=== PATIENT | male | born 1945 | race Caucasian/White ===

== ENCOUNTER 2017-10-22 16:57 | Emergency (ER) | payer MEDICARE, BC ==
[2017-10-22 19:24] LABS: Hematocrit 39 % (42-52); Hemoglobin 13.3 g/dl (14.0-18.0); Mean Corpuscular HGB Conc 34 g/dl (31-36); Mean Corpuscular Hemoglobin 31 pg (27-31); Mean Corpuscular Volume 92 fL (80-94); Mean Platelet Volume 7 um3 (7.4-10.4); Red Blood Count 4.24 10^6/ul (4.0-5.4); Red Cell Distribution Width 14 % (10.5-15); White Blood Count 6.1 10^3/ul (3.5-10.8)
[2017-10-22] MEDS ORDERED: NS 0.9% 1000 ML* 1,000 ML IV ONE (19:34)
[2017-10-22 19:46] LABS: Albumin 4.2 g/dL (3.2-5.2); BUN/Creatinine Ratio 28.6 (8-20); Calcium 8.9 mg/dL (8.6-10.3); EGFR Non-African American 81.7 (>60); Globulin 2.6 g/dL (2-4); Magnesium 2.1 mg/dL (1.9-2.7); Potassium 3.7 mmol/L (3.5-5.0); Total Bilirubin 0.4 mg/dL (0.2-1.0); Total Protein 6.8 g/dL (6.4-8.9)
[2017-10-22 19:47] LABS: Troponin I 0.01 ng/mL (<0.04)
[2017-10-22 20:02] LABS: TSH (Thyroid Stimulating Horm) 0.45 mcIU/mL (0.34-5.60)
--- NOTE | 2017-10-22 20:11 | ED ---
Complex/Multi-Sys Presentation - HPI Summary HPI Summary: 72M presents with weakness since Monday. He states that on Monday he walked 4 miles. He states the weakness started after that. He states his feet have been hurting intermittent. He has been having a cough and sinus congestion. cough has been dry and productive. He denies any n/v/d/c. He denies any abdominal pain, headache, dizziness, change in vision,or chest pain. He did have one episode of SOB that lasted a couple minutes. He states traveled back from [place] and slept the whole time. He states has not had much of an appetite. He denies any dysuria or hematuria. He denies any flank pain. He has not been drying much. - History Of Current Complaint Chief Complaint: EDWeakness Time Seen by Provider: 10/22/17 18:45 - Allergies/Home Medications Allergies/Adverse Reactions: Allergies Allergy/AdvReac Type Severity Reaction Status Date / Time Brimonidine [From Alphagan] Allergy ITCHING, Verified 10/22/17 17:01 REDNESS BURNING EYES Isopropamide [From Combagen] Allergy Itching Verified 10/22/17 17:01 Prochlorperazine Allergy Itching Verified 10/22/17 17:01 [From Combagen] PMH/Surg Hx/FS Hx/Imm Hx Cardiovascular History: Reports: Hx Hypertension - CONTROLLED WITH MEDICATION, Other Cardiovascular Problems/Disorders - CHOLESTEROL CONTROL WITH MED History: Reports: Other Problems/Disorders - SLIGHT PSA RISE - UNDER CONTROL Sensory History: Reports: Hx Cataracts - BILATERAL, Hx Contacts or Glasses - GLASSES, Hx Glaucoma - RIGHT EYE CURRENTLY Denies: Hx Hearing Aid Opthamlomology History: Reports: Hx Cataracts - BILATERAL, Hx Contacts or Glasses - GLASSES, Hx Glaucoma - RIGHT EYE CURRENTLY Psychiatric History: Reports: Hx Anxiety - MILD, Hx Depression - CONTROLLED WITH MEDICATION - Surgical History Surgery Procedure, Year, and Place: TONSILLECTOMY A YOUNG CHILD, [place]. 2013 [place]AB[place] [facility] [place] Anesthesia Reactions: No - Immunization History Immunizations Up to Date: Yes Infectious Disease History: No Infectious Disease History: Denies: Traveled Outside the [place] in Last 30 Days - Social History Alcohol Use: Occasionally Alcohol Amount: 5 DRINKS PER WEEK Substance Use Type: Reports: None Smoking Status (MU): Former Smoker Type: Cigarettes Amount Used/How Often: LIGHTLY FOR ABOUT 1 YEAR Have You Smoked in the Last Year: No Review of Systems Negative: Fever Negative: Chest Pain Positive: Shortness Of Breath, Cough Neurological: Other - fatigue All Other Systems Reviewed And Are Negative: Yes Physical Exam Triage Information Reviewed: Yes Vital Signs On Initial Exam: Initial Vitals Temp Pulse Resp BP Pulse Ox 100.4 F 90 16 142/68 93 10/22/17 17:01 10/22/17 17:01 10/22/17 17:01 10/22/17 17:01 10/22/17 17:01 Vital Signs Reviewed: Yes Appearance: Positive: Well-Appearing Skin: Positive: Warm, Dry Head/Face: Positive: Normal Head/Face Inspection Eyes: Positive: Normal, EOMI, XIOMARA, Conjunctiva Clear ENT: Positive: Normal ENT inspection, Pharynx normal, TMs normal Respiratory/Lung Sounds: Positive: Clear to Auscultation, Breath Sounds Present Cardiovascular: Positive: Normal, RRR Abdomen Description: Positive: Nontender, Soft Bowel Sounds: Positive: Present Musculoskeletal: Positive: Strength/ROM Intact Neurological: Positive: Sensory/Motor Intact, Alert, Oriented to Person Place, Time, CN Intact II-III Psychiatric: Positive: Normal - [place] Coma Scale Coma Scale Total: 15 Diagnostics - Vital Signs Vital Signs Temp Pulse Resp BP Pulse Ox 10/22/17 17:01 100.4 F 90 16 142/68 93 - Laboratory Lab Results: Lab Results 10/22/17 10/22/17 10/22/17 Range/Units 19:10 19:10 19:10 WBC 6.1 (3.5-10.8) 10^3/ul RBC 4.24 (4.0-5.4) 10^6/ul Hgb 13.3 L (14.0-18.0) g/dl Hct 39 L (42-52) % MCV 92 (80-94) fL MCH 31 (27-31) pg MCHC 34 (31-36) g/dl RDW 14 (10.5-15) % Plt Count 170 (150-450) 10^3/ul MPV 7 L (7.4-10.4) um3 Neut % (Auto) 84.0 H (38-83) % Lymph % (Auto) 7.4 L (25-47) % Dupage % (Auto) 8.1 (1-9) % Eos % (Auto) 0.1 (0-6) % Baso % (Auto) 0.4 (0-2) % Absolute Neuts (auto) 5.1 (1.5-7.7) 10^3/ul Absolute Lymphs (auto) 0.5 L (1.0-4.8) 10^3/ul Absolute Monos (auto) 0.5 (0-0.8) 10^3/ul Absolute Eos (auto) 0 (0-0.6) 10^3/ul Absolute Basos (auto) 0 (0-0.2) 10^3/ul Absolute Nucleated RBC 0 10^3/ul Nucleated RBC % 0.1 Sodium 134 (133-145) mmol/L Potassium 3.7 (3.5-5.0) mmol/L Chloride 103 (101-111) mmol/L Carbon Dioxide 22 (22-32) mmol/L Anion Gap 9 (2-11) mmol/L BUN 26 H (6-24) mg/dL Creatinine 0.91 (0.67-1.17) mg/dL Est GFR ( Amer) 105.0 (>60) Est GFR (Non-Af Amer) 81.7 (>60) BUN/Creatinine Ratio 28.6 H (8-20) Glucose 132 H (70-100) mg/dL Lactic Acid 0.9 (0.5-2.0) mmol/L Calcium 8.9 (8.6-10.3) mg/dL Magnesium 2.1 (1.9-2.7) mg/dL Total Bilirubin 0.40 (0.2-1.0) mg/dL AST 36 (13-39) U/L ALT 29 (7-52) U/L Alkaline Phosphatase 45 (34-104) U/L Total Creatine Kinase 292 H (10-223) U/L Troponin I 0.01 (<0.04) ng/mL Total Protein 6.8 (6.4-8.9) g/dL Albumin 4.2 (3.2-5.2) g/dL Globulin 2.6 (2-4) g/dL Albumin/Globulin Ratio 1.6 (1-3) TSH 0.45 (0.34-5.60) mcIU/mL Result Diagrams: 10/22/17 19:10 10/22/17 19:10 Lab Statement: Any lab studies that have been ordered have been reviewed, and results considered in the medical decision making process. - Radiology chest Xray Interpretation: No Acute Changes Radiology Interpretation Completed By: Radiologist - EKG No standard instances Cardiac Rate: NL EKG Rhythm: Sinus Rhythm ST Segment: Normal EKG Interpretation: normal sinus rhythmn Re-Evaluation - Re-Evaluation First Eval Re-Evaluation Time: 20:45 Change: Improved Comment: feeling better after fluids Second Eval Re-Evaluation Time: 21:15 Change: Unchanged Comment: developed a fever, likely viral etiology Complex Multi-Symp Course/Dx Course Of Treatment: 72M presents with weakness since Monday. He states that on Monday he walked 4 miles. He states the weakness started after that. He states his feet have been hurting intermittent. He has been having a cough and sinus congestion. cough has been dry and productive. He denies any n/v/d/c. He denies any abdominal pain, headache, dizziness, change in vision, chest pain or SOB. He states traveled back from [place] and slept the whole time. He states has not had much of an appetite. He denies any dysuria or hematuria. He denies any flank pain. He has not been drying much. normal PE. lungs CTA. chest xray normal labs only abnormality is bun is a little elevated and CK is a little elevated could be do to dehyrdation. ekg normal. when went to discharge developed fever. discussed likely viral as all labs and chest xray normal. told to follow up with primary. patient understand and agrees with plan. - Diagnoses Differential Diagnoses/HQI/PQRI: Metabolic Abnormality, Sepsis, Urinary Tract Infection Provider Diagnoses: Weakness Discharge - Discharge Plan Condition: Good Disposition: HOME Patient Education Materials: Dehydration (ED), Weakness (ED) Referrals: Romero Ricci MD [Primary Care Provider] - Additional Instructions: Follow up with primary within 5 days Drink throughout the day Eat small snacks as tolerated Return to ED if develop any new or worsening symptoms
--- NOTE | 2017-10-22 20:21 | RAD ---
INDICATION: Cough. COMPARISON: There are no prior studies available for comparison. TECHNIQUE: Dual-energy PA and lateral views of the chest were obtained. FINDINGS: The heart is within normal limits in size. Mediastinal and hilar contours appear within normal limits. The lungs are hyperinflated and clear. No pleural effusion is seen. IMPRESSION: FINDINGS SUGGESTIVE OF COPD, NO EVIDENCE FOR ACUTE FINDING.
[2017-10-22] MEDS ORDERED: Acetaminophen TAB* 325 MG PO ONE (21:13)
[2017-10-22 21:41] VITALS: BP 131/67
== END 2017-10-22 21:41 | disposition home or self-care (01) ==
LOC: ED 16:57
DX: R53.1 Weakness (principal); Z87.891 Personal history of nicotine dependence; I10 Essential (primary) hypertension; F41.9 Anxiety disorder, unspecified; F32.9 Major depressive disorder, single episode, unspecified
CPT/HCPCS: 36415; 71020; 80053; 82550; 83605; 83735; 84443; 84484; 85025; 93005; 96360; 99282; A9270-GY

== ENCOUNTER 2018-07-04 06:27 | Day surgery (SDC) | payer MEDICARE, BC ==
[~2018-07-04 06:27] MED LIST: Acetaminophen TAB* 325 MG PO PRN; Buffered Lidocaine 0.9% SYRIN* 5 ML/SYR SYRINGE INTRADERM ONE; mitoMYcin PWD* 0.2 MG in Sterile Water for Inj* 1 ML OPHTHALMIC SCH
[2018-07-04] MEDS ORDERED: fentaNYL* 50 MCG/ML 2 ML VIAL (100 MCG VIAL) ONE (07:14)
[2018-07-04] MEDS ORDERED: Midazolam* 1 MG/ML 2 ML VIAL (2 MG) ONE (07:15)
[2018-07-04 08:10] VITALS: BP 123/73
--- NOTE | 2018-07-04 12:03 | OP ---
DATE OF OPERATION: 07/04/18 DATE OF : 43 SURGEON: Km John M.D. ANESTHESIA: Local MAC. PREOPERATIVE DIAGNOSIS: Uncontrolled glaucoma, left eye. POSTOPERATIVE DIAGNOSIS: Uncontrolled glaucoma, left eye. OPERATIVE PROCEDURE: Extracapsular cataract extraction with intraocular lens implant, left eye. COMPLICATIONS: None. DESCRIPTION OF PROCEDURE: The patient was prepped and draped in the usual sterile fashion. Lid spec ulum was placed to left eye. Topical 2% lidocaine with epinephrine was placed. A 20-gauge paracentes is was made at the 3 o'clock position and then a 1.8 mm clear corneal incision was made at the 6 o'cl ock position. Anterior chamber was irrigated with 1% non-preservative intracameral lidocaine and then filled with Healon. The XEN insertion device was placed through the clear corneal incision and plac ed just superior to trabecular meshwork at the 10 o'clock position. The device was inserted subconju nctivally 3-mm posterior to the limbus. Irrigation-aspiration used to rinse the anterior chamber free of Healon and the wounds all checked and found to be watertight. Topical Maxitrol drops were given. [id number] #: [id number]
[2018-07-04] MEDS ORDERED: Lidocaine 1%* 5 ML VIAL ONE (14:48)
[2018-07-04] MEDS ORDERED: Neomycin/Polymy/Dex OPTH.SUSP* MAXITROL 0.1% 5 ML ONE (14:48)
[2018-07-04] MEDS ORDERED: Proparacaine 0.5% OPHTH.SOL* 15 ML BTL ONE (14:48)
[2018-07-04] MEDS ORDERED: Lidocaine 2% EPI 1:200000 MPF*10-20 ML VIAL ONE (14:48)
[2018-07-04] MEDS ORDERED: Povidone Iodine 5% OPTH* 30 ML BTL ONE (14:48)
== END 2018-07-04 08:23 | disposition home or self-care (01) ==
LOC: OREAST 06:27
PROVIDERS: ATTEND Specialist
DX: H40.1423 Capsular glaucoma with pseudoexfoliation of lens, left eye, severe stage (principal); H40.1111 Primary open-angle glaucoma, right eye, mild stage; Z96.1 Presence of intraocular lens; Z87.891 Personal history of nicotine dependence; I10 Essential (primary) hypertension; E78.5 Hyperlipidemia, unspecified; F41.8 Other specified anxiety disorders; R42 Dizziness and giddiness; I95.1 Orthostatic hypotension
CPT/HCPCS: A9270-GY; C1725; J2250; J3010; J9280

== ENCOUNTER 2023-03-03 23:58 | Inpatient (IN) ==
[2023-03-04] MEDS ORDERED: Midazolam 2 mg/2 ml VIAL 1 mg/ml 2 ml VIAL (2 mg) IV SLOW PU ONE (00:03)
[2023-03-04] MEDS ORDERED: Midazolam 2 mg/2 ml VIAL 1 mg/ml 2 ml VIAL (2 mg) ONE (00:05)
[2023-03-04] MEDS ORDERED: Iodixanol (CONTRAST) 320 MG/ML 100 ML SDV IV ONE (00:23)
[2023-03-04 00:38] LABS: ABS Lymphocytes 0.5 10^3/ul (1.0-4.8); ABS Monocytes 0.8 10^3/ul (0-0.8); ABS Neutrophils 16.1 10^3/ul (1.5-7.7); Eosinophil % 0.1 %; Hematocrit 39 % (42-52); Lymphocyte % 2.9 %; Mean Corpuscular Hemoglobin 32 pg (27-31); Mean Corpuscular Hgb Conc 34 g/dL (31-36); Mean Corpuscular Volume 95 fL (80-94); Mean Platelet Volume 7.4 fL (7.4-10.4); Platelet Count 178 10^3/uL (150-450); Red Blood Count 4.09 10^6 /uL (4.18-5.48); Red Cell Distribution Width 13 % (10-15); White Blood Count 17.5 10^3/uL (3.5-10.8)
[2023-03-04 01:02] LABS: High Sens Troponin Baseline 6 pg/mL (<20); INR 1.31 (0.88-1.18)
[2023-03-04] MEDS ORDERED: NS 0.9% 1000 ml BAG 1,000 ML IV ONE (01:02)
[2023-03-04] MEDS ORDERED: NS 0.9% 1000 ml BAG 500 ML IV ONE (01:03)
[2023-03-04] MEDS ORDERED: levETIRAcetam 1000MG IVPREMIX 1,000 MG/100 ML BAG IVPB ONE ×2 (01:03→01:49)
[2023-03-04] MEDS ORDERED: Acetaminophen IV 1 GM/100ML 1,000 MG/100 ML BAG IV ONE ×2 (01:28→01:29)
[2023-03-04] MEDS ORDERED: cefTRIAXone 2 GM ADDV.VIAL 2 GM in NS 0.9% 100 ml BAG 100 ML IV ONE (01:28)
[2023-03-04] MEDS ORDERED: cefTRIAXone 2 gm/50 mL D5W 2 GM/50 ML BAG IV ONE (01:31)
[2023-03-04 01:33] LABS: ALT 21 U/L (7-52); Albumin 4.1 g/dL (3.2-5.2); Albumin/Globulin Ratio 1.6 (1-3); Alcohol, S < 13 mg/dL (<13); Alkaline Phosphatase 60 U/L (35-149); Blood Urea Nitrogen 32 mg/dL (6-24); CO2 Carbon Dioxide 22 mmol/L (22-32); Calcium 9.2 mg/dL (8.6-10.3); Chloride 101 mmol/L (101-111); Creatinine, Serum 1.04 mg/dL (0.67-1.17); Globulin 2.5 g/dL (2-4); Glucose 152 mg/dL (70-100); Sodium 134 mmol/L (135-145); Total Protein 6.6 g/dL (6.4-8.9); eGFR CKD-EPI 73.5 (>60)
[2023-03-04 01:39] LABS: Anion Gap 11 mmol/L (2-11)
[2023-03-04] MEDS ORDERED: Vancomycin 1,500 MG in NS 0.9% 250 ml 250 ML IVPB ONE (02:00)
[2023-03-04] MEDS ORDERED: Vancomycin 1,000 MG BAG/ADDV ONE (02:09)
[2023-03-04] MEDS ORDERED: Gadoteridol (CONTRAST) 279.3 MG/ML 10 ML IV ONE (03:04)
[2023-03-04 04:54] LABS: Urine Appearance Clear; Urine Bilirubin Negative (Negative); Urine Blood Negative (Negative); Urine Color Yellow; Urine Glucose 1+(50 mg/dL) (Negative); Urine Ketones 2+ (Negative); Urine Nitrite Negative (Negative); Urine Protein 2+(100 mg/dL) (Negative); Urine Specific Gravity 1.025 (1.002-1.030); Urine Urobilinogen Negative (Negative)
[2023-03-04 05:00] LABS: Urine Bacteria Absent (Absent); Urine Red Blood Cell 1+(3-5/hpf) (Absent); Urine Renal Epithelial Cells Present (Absent); Urine White Blood Cell Trace(0-5/hpf) (Absent)
[2023-03-04 05:19] LABS: Potassium Redraw 3.7 mmol/L (3.5-5.0)
[2023-03-04 06:31] LABS: C Reactive Protein 41.22 mg/L (<8.01)
[2023-03-04 07:05] LABS: Erythrocyte Sed Rate 17 mm/Hr (0-19)
[2023-03-04] MEDS ORDERED: Lactated Ringers SEPSIS* BAG 2,330 ML IV ONE (08:24)
[2023-03-04] MEDS ORDERED: Prochlorperazine 5 mg/ml 2 ml VIAL (10 mg) IV PRN (08:28)
[2023-03-04] MEDS ORDERED: PTO:Travoprost Z 0.004% OPHTH (NF) 2.5 ML BTL BOTH EYES SCH (08:30)
[2023-03-04] MEDS ORDERED: Vancomycin per Pharmacy 1 EA NOTE FOLLOW UP SCH (09:00)
[2023-03-04] MEDS ORDERED: Carbidopa/Levodop 25/100 MG TAB PO SCH (09:00)
[2023-03-04] MEDS ORDERED: OMEGA ACID ETHYL ESTERS PO SCH (09:00)
[2023-03-04] MEDS ORDERED: Lactated Ringers 1000 ml BAG 1,000 ML IV SCH (09:00)
[2023-03-04] MEDS: Cefepime 1 GM in Dextrose 1 GM/50 ML BAG IV SCH ×2 (09:47→22:00)
[2023-03-04] MEDS: Enoxaparin 40 MG/0.4 ML SYR SUBCUT SCH (10:00)
[2023-03-04] MEDS: [UNRECOGNIZED DRUG - OTHER] PO SCH (14:13)
[2023-03-04] MEDS: COENZYME Q10 PO SCH (14:13)
[2023-03-04] MEDS: VITAMIN E PO SCH (14:13)
[2023-03-04] MEDS: PTO:Dorzolamide 2% OPTH (NF) 10 ML BTL LEFT EYE SCH ×2 (14:18→21:57)
[2023-03-04] MEDS: Vancomycin 1000 MG in NS 0.9% 250 ML IVPB SCH (17:54)
[2023-03-04] MEDS ORDERED: Erythromycin OPTH OINT APPLIC OINT BOTH EYES SCH (21:00)
[2023-03-04] MEDS: PTO:Travoprost Z 0.004% OPHTH (NF) 2.5 ML BTL BOTH EYES SCH (21:55)
[2023-03-04] MEDS: OMEGA ACID ETHYL ESTERS PO SCH (21:56)
[2023-03-04] MEDS: Nystatin TOP POWDER 15 GM BTL TOPICAL SCH (21:57)
[2023-03-04] MEDS: TIMOLOL XE 0.5% BOTH EYES SCH (21:59)
[2023-03-05 03:44] LABS: ABS Lymphocytes 0.9 10^3/ul (1.0-4.8); ABS Monocytes 0.8 10^3/ul (0-0.8); ABS Neutrophils 10.5 10^3/ul (1.5-7.7); Eosinophil % 0.2 %; Hematocrit 35 % (42-52); Hemoglobin 11.6 g/dL (14.0-18.0); Lymphocyte % 7.7 %; Mean Corpuscular Hemoglobin 31 pg (27-31); Mean Corpuscular Hgb Conc 33 g/dL (31-36); Mean Corpuscular Volume 94 fL (80-94); Mean Platelet Volume 7.1 fL (7.4-10.4); Platelet Count 149 10^3/uL (150-450); Red Blood Count 3.75 10^6 /uL (4.18-5.48); Red Cell Distribution Width 14 % (10-15); White Blood Count 12.3 10^3/uL (3.5-10.8)
[2023-03-05 04:14] LABS: C Reactive Protein 202.5 mg/L (<8.01); Calcium 8.7 mg/dL (8.6-10.3); Creatinine, Serum 0.92 mg/dL (0.67-1.17); Potassium 3.7 mmol/L (3.5-5.0); eGFR CKD-EPI 85.1 (>60)
[2023-03-05] MEDS: Vancomycin 1000 MG in NS 0.9% 250 ML IVPB SCH (05:47)
[2023-03-05] MEDS ORDERED: Senna TAB 8.6 mg TAB PO PRN (07:30)
[2023-03-05] MEDS ORDERED: Magnesium Hydroxide LIQ 30 ML UDC PO PRN (07:30)
[2023-03-05] MEDS: [UNRECOGNIZED DRUG - OTHER] PO SCH (08:41)
[2023-03-05] MEDS: VITAMIN E PO SCH (08:41)
[2023-03-05] MEDS: COENZYME Q10 PO SCH (08:41)
[2023-03-05] MEDS: OMEGA ACID ETHYL ESTERS PO SCH ×2 (08:41→21:42)
[2023-03-05] MEDS: Nystatin TOP POWDER 15 GM BTL TOPICAL SCH ×2 (08:41→21:41)
[2023-03-05] MEDS: PTO:Dorzolamide 2% OPTH (NF) 10 ML BTL LEFT EYE SCH ×2 (08:41→21:40)
[2023-03-05] MEDS: Enoxaparin 40 MG/0.4 ML SYR SUBCUT SCH (08:42)
[2023-03-05] MEDS: Cefepime 1 GM in Dextrose 1 GM/50 ML BAG IV SCH ×2 (08:42→21:34)
[2023-03-05] MEDS: Aspirin EC 81 mg TAB.EC (enteric coated) PO SCH (08:42)
[2023-03-05] MEDS: TIMOLOL XE 0.5% BOTH EYES SCH ×2 (09:28→21:42)
[2023-03-05] MEDS: PTO:Travoprost Z 0.004% OPHTH (NF) 2.5 ML BTL BOTH EYES SCH (21:40)
[2023-03-06 00:54] LABS: Calcium 9.2 mg/dL (8.6-10.3); Creatinine, Serum 0.85 mg/dL (0.67-1.17); Potassium 4.4 mmol/L (3.5-5.0); eGFR CKD-EPI 88.9 (>60)
[2023-03-06] MEDS ORDERED: Vancomycin Trough Check NOTE FOLLOW UP ONE (05:30)
[2023-03-06 06:09] LABS: ABS Eosinophils 0.3 10^3/ul (0-0.6); ABS Monocytes 0.7 10^3/ul (0-0.8); ABS Neutrophils 5.2 10^3/ul (1.5-7.7); Eosinophil % 3.8 %; Hematocrit 36 % (42-52); Hemoglobin 12.2 g/dL (14.0-18.0); Lymphocyte % 14.1 %; Mean Corpuscular Hemoglobin 32 pg (27-31); Mean Corpuscular Hgb Conc 34 g/dL (31-36); Mean Corpuscular Volume 93 fL (80-94); Mean Platelet Volume 7.5 fL (7.4-10.4); Nucleated Red Blood Cells % 0.1; Platelet Count 164 10^3/uL (150-450); Red Blood Count 3.86 10^6 /uL (4.18-5.48); Red Cell Distribution Width 14 % (10-15); White Blood Count 7.2 10^3/uL (3.5-10.8)
[2023-03-06 06:28] LABS: C Reactive Protein 138.74 mg/L (<8.01); Creatinine, Serum 0.82 mg/dL (0.67-1.17); Potassium 4.1 mmol/L (3.5-5.0); Vancomycin Trough 7.5 mcg/mL; eGFR CKD-EPI 89.9 (>60)
[2023-03-06] MEDS: Cefepime 1 GM in Dextrose 1 GM/50 ML BAG IV SCH ×2 (09:47→22:27)
[2023-03-06] MEDS: TIMOLOL XE 0.5% BOTH EYES SCH ×2 (09:47→22:30)
[2023-03-06] MEDS: Aspirin EC 81 mg TAB.EC (enteric coated) PO SCH (09:52)
[2023-03-06] MEDS: OMEGA ACID ETHYL ESTERS PO SCH ×2 (09:52→22:24)
[2023-03-06] MEDS: VITAMIN E PO SCH (09:54)
[2023-03-06] MEDS: COENZYME Q10 PO SCH (09:54)
[2023-03-06] MEDS: PTO:Dorzolamide 2% OPTH (NF) 10 ML BTL LEFT EYE SCH ×2 (09:54→22:21)
[2023-03-06] MEDS: [UNRECOGNIZED DRUG - OTHER] PO SCH (09:54)
[2023-03-06] MEDS: Enoxaparin 40 MG/0.4 ML SYR SUBCUT SCH (09:55)
[2023-03-06] MEDS: Nystatin TOP POWDER 15 GM BTL TOPICAL SCH ×2 (09:55→22:30)
[2023-03-06] MEDS: PTO:Travoprost Z 0.004% OPHTH (NF) 2.5 ML BTL BOTH EYES SCH (22:21)
[2023-03-07 05:40] LABS: ABS Eosinophils 0.3 10^3/ul (0-0.6); ABS Lymphocytes 1.1 10^3/ul (1.0-4.8); ABS Monocytes 0.6 10^3/ul (0-0.8); ABS Neutrophils 5.3 10^3/ul (1.5-7.7); Eosinophil % 4.7 %; Hematocrit 35 % (42-52); Hemoglobin 11.8 g/dL (14.0-18.0); Lymphocyte % 14.4 %; Mean Corpuscular Hemoglobin 31 pg (27-31); Mean Corpuscular Hgb Conc 34 g/dL (31-36); Mean Corpuscular Volume 93 fL (80-94); Mean Platelet Volume 7.2 fL (7.4-10.4); Platelet Count 187 10^3/uL (150-450); Red Blood Count 3.78 10^6 /uL (4.18-5.48); Red Cell Distribution Width 14 % (10-15); White Blood Count 7.4 10^3/uL (3.5-10.8)
[2023-03-07 06:02] LABS: Calcium 9.3 mg/dL (8.6-10.3); Creatinine, Serum 0.83 mg/dL (0.67-1.17); Potassium 4.3 mmol/L (3.5-5.0); eGFR CKD-EPI 89.6 (>60)
[2023-03-07] MEDS: Cefepime 1 GM in Dextrose 1 GM/50 ML BAG IV SCH (09:01)
[2023-03-07] MEDS: [UNRECOGNIZED DRUG - OTHER] PO SCH (09:06)
[2023-03-07] MEDS: VITAMIN E PO SCH (09:06)
[2023-03-07] MEDS: COENZYME Q10 PO SCH (09:06)
[2023-03-07] MEDS: OMEGA ACID ETHYL ESTERS PO SCH (09:06)
[2023-03-07] MEDS: Nystatin TOP POWDER 15 GM BTL TOPICAL SCH (09:07)
[2023-03-07] MEDS: PTO:Dorzolamide 2% OPTH (NF) 10 ML BTL LEFT EYE SCH (09:07)
[2023-03-07] MEDS: TIMOLOL XE 0.5% BOTH EYES SCH (09:08)
[2023-03-07 12:24] VITALS: BP 127/64
== END 2023-03-07 13:30 | disposition home or self-care (01) | DRG 872 ==
LOC: EDHOLD 23:58 → ED 23:58 → SUATTDRO 03-04 08:15 → MEDTELE 03-04 10:39
PROVIDERS: ADMIT Internal Medicine; ATTEND Internal Medicine

== ENCOUNTER 2024-02-12 18:55 | Inpatient (IN) ==
[2024-02-12] MEDS: Acetaminophen IV 1 GM/100ML 1,000 MG/100 ML BAG IV ONE (19:32)
[2024-02-12] MEDS: Lactated Ringers 1000 ml BAG 1,000 ML IV ONE ×2 (19:32→22:13)
[2024-02-12 19:39] LABS: ABS Eosinophils 0.2 10^3/uL (0.0-0.5); ABS Lymphocytes 0.6 10^3/uL (1.0-4.8); ABS Monocytes 0.9 10^3/uL (0.0-1.1); ABS Neutrophils 10.6 10^3/uL (1.5-7.6); Eosinophil % 1.2 %; Hematocrit 37.6 % (38-53); Hemoglobin 12.6 g/dL (13.2-16.3); Lymphocyte % 4.7 %; Mean Corpuscular Hgb Conc 33.5 g/dL (31-36); Mean Corpuscular Volume 92.6 fL (80-97); Mean Platelet Volume 6.7 fL (7.5-11.2); Platelet Count 305 10^3/uL (150-450); Red Blood Count 4.06 10^6/uL (4.06-5.63); Red Cell Distribution Width 12.6 % (12-17); White Blood Count 12.3 10^3/uL (3.6-10.2)
[2024-02-12 19:46] LABS: INR 1.09 (0.83-1.13)
[2024-02-12 20:29] LABS: Albumin 4.4 g/dL (3.2-5.2); Albumin/Globulin Ratio 1.5 (1-3); C Reactive Protein 87.95 mg/L (<8.01); Calcium 9.4 mg/dL (8.6-10.3); Creatinine, Serum 0.9 mg/dL (0.67-1.17); Globulin 2.9 g/dL (2-4); Potassium 4.2 mmol/L (3.5-5.0); Total Bilirubin 0.5 mg/dL (0.2-1.0); Total Protein 7.3 g/dL (6.4-8.9); eGFR CKD-EPI 86.9 (>60)
[2024-02-12 21:17] LABS: Urine Appearance Clear; Urine Bilirubin Negative (Negative); Urine Blood Negative (Negative); Urine Color Yellow; Urine Glucose Negative (Negative); Urine Ketones Negative (Negative); Urine Nitrite Negative (Negative); Urine Protein 1+ (>=30 mg/dL) (Negative); Urine Specific Gravity 1.032 (1.002-1.030); Urine Urobilinogen 1+ (Negative)
[2024-02-12] MEDS: Pantoprazole VIAL 40 MG VIAL IV ONE (21:35)
[2024-02-12] MEDS: cefTRIAXone 2 gm/50 mL D5W 2 GM/50 ML BAG IV ONE (21:36)
[2024-02-12 21:38] LABS: High Sensitivity Troponin 1 Hr 6 pg/mL (<20)
[2024-02-12 22:00] LABS: Urine Bacteria Absent /HPF (Absent); Urine Red Blood Cell 3+(>10/hpf) /HPF (0-Trace); Urine White Blood Cell Trace(0-5/hpf) /HPF (0-Trace)
[2024-02-12] MEDS ORDERED: Vancomycin 1,250 MG in NS 0.9% 250 ml 250 ML IVPB SCH (22:00)
[2024-02-12] MEDS ORDERED: Ondansetron 4 mg VIAL 2 MG/ML 2 ml VIAL IV PRN (23:23)
[2024-02-12] MEDS ORDERED: Zosyn per Pharmacy NOTE FOLLOW UP SCH (23:45)
[2024-02-12] MEDS ORDERED: Vancomycin per Pharmacy 1 EA NOTE FOLLOW UP SCH (23:45)
[2024-02-12] MEDS: Heparin 5000 UNITS/ML 1 mL VIAL SUBCUT SCH (23:46)
[2024-02-12] MEDS: Vancomycin 1,250 MG in NS 0.9% 250 ml 250 ML IVPB ONE (23:47)
[2024-02-13] MEDS: Piperacillin/Tazobac 3.375 BAG 3.375 GM/100 ML BAG IV ONE (01:44)
[2024-02-13] MEDS: NS 0.9% 1000 ml BAG 1,000 ML IV SCH (01:46)
[2024-02-13 06:40] LABS: ABS Eosinophils 0.1 10^3/uL (0.0-0.5); ABS Monocytes 1.3 10^3/uL (0.0-1.1); ABS Neutrophils 8.4 10^3/uL (1.5-7.6); ABS Nucleated RBC 0.01 10^3/ul; Hematocrit 33.7 % (38-53); Hemoglobin 11.5 g/dL (13.2-16.3); Lymphocyte % 9.5 %; Mean Corpuscular Hemoglobin 31.8 pg (27-33); Mean Corpuscular Hgb Conc 34.2 g/dL (31-36); Mean Platelet Volume 7.2 fL (7.5-11.2); Nucleated Red Blood Cells % 0.1 %/100WBC (0.0-0.8); Platelet Count 250 10^3/uL (150-450); Red Blood Count 3.62 10^6/uL (4.06-5.63); Red Cell Distribution Width 12.7 % (12-17); White Blood Count 10.8 10^3/uL (3.6-10.2)
[2024-02-13 06:59] LABS: Calcium 8.3 mg/dL (8.6-10.3); Creatinine, Serum 0.82 mg/dL (0.67-1.17); Magnesium 1.9 mg/dL (1.9-2.7); Potassium 3.7 mmol/L (3.5-5.0); eGFR CKD-EPI 89.4 (>60)
[2024-02-13] MEDS: Timolol 0.5% OPTH.SOL BTL BOTH EYES SCH (08:52)
[2024-02-13] MEDS: CMCS: Dorzolamide 2% OPTH (NF) 10 ML BTL LEFT EYE SCH (08:53)
[2024-02-13] MEDS: ZOSYN 3.375 GM Q8H per EXTENDED INFUSION IV SCH ×2 (09:14→21:08)
[2024-02-13] MEDS: Vancomycin 1000 MG in NS 0.9% 250 ML IVPB SCH (12:29)
[2024-02-13] MEDS: Clotrimazole 1% CREAM 30 gm TOPICAL SCH (21:14)
[2024-02-14] MEDS: Vancomycin 1000 MG in NS 0.9% 250 ML IVPB SCH (01:18)
[2024-02-14 07:17] LABS: ABS Eosinophils 0.3 10^3/uL (0.0-0.5); ABS Monocytes 0.7 10^3/uL (0.0-1.1); ABS Neutrophils 5.4 10^3/uL (1.5-7.6); Eosinophil % 4.2 %; Hematocrit 32.2 % (38-53); Lymphocyte % 13.5 %; Mean Corpuscular Hemoglobin 31.6 pg (27-33); Mean Corpuscular Hgb Conc 34.2 g/dL (31-36); Mean Corpuscular Volume 92.3 fL (80-97); Mean Platelet Volume 7.2 fL (7.5-11.2); Platelet Count 227 10^3/uL (150-450); Red Blood Count 3.49 10^6/uL (4.06-5.63); Red Cell Distribution Width 13.1 % (12-17); White Blood Count 7.5 10^3/uL (3.6-10.2)
[2024-02-14 07:51] LABS: Albumin 3.3 g/dL (3.2-5.2); Albumin/Globulin Ratio 1.5 (1-3); Calcium 8.5 mg/dL (8.6-10.3); Creatinine, Serum 0.88 mg/dL (0.67-1.17); Globulin 2.2 g/dL (2-4); Magnesium 1.9 mg/dL (1.9-2.7); Potassium 4.2 mmol/L (3.5-5.0); Total Bilirubin 0.5 mg/dL (0.2-1.0); Total Protein 5.5 g/dL (6.4-8.9); eGFR CKD-EPI 87.5 (>60)
[2024-02-14] MEDS ORDERED: Vancomycin Trough Check NOTE FOLLOW UP ONE (11:30)
[2024-02-14 12:51] LABS: Creatinine, Serum 0.87 mg/dL (0.67-1.17); eGFR CKD-EPI 87.8 (>60)
[2024-02-14] MEDS: Latanoprost 0.005% 2.5 ml BTL BOTH EYES SCH (21:24)
[2024-02-15 07:38] LABS: Hematocrit 33.2 % (38-53); Hemoglobin 11.3 g/dL (13.2-16.3); Mean Corpuscular Hemoglobin 31.1 pg (27-33); Mean Corpuscular Volume 91.5 fL (80-97); Mean Platelet Volume 7.1 fL (7.5-11.2); Platelet Count 243 10^3/uL (150-450); Red Blood Count 3.63 10^6/uL (4.06-5.63); Red Cell Distribution Width 12.7 % (12-17); White Blood Count 5.7 10^3/uL (3.6-10.2)
[2024-02-15 08:58] LABS: Albumin 3.3 g/dL (3.2-5.2); Albumin/Globulin Ratio 1.5 (1-3); Calcium 8.7 mg/dL (8.6-10.3); Creatinine, Serum 0.85 mg/dL (0.67-1.17); Globulin 2.2 g/dL (2-4); Potassium 3.9 mmol/L (3.5-5.0); Total Bilirubin 0.4 mg/dL (0.2-1.0); Total Protein 5.5 g/dL (6.4-8.9); eGFR CKD-EPI 88.4 (>60)
[2024-02-16 05:26] LABS: Hematocrit 33.4 % (38-53); Hemoglobin 11.7 g/dL (13.2-16.3); Mean Corpuscular Hemoglobin 32.1 pg (27-33); Mean Corpuscular Hgb Conc 34.9 g/dL (31-36); Mean Corpuscular Volume 92.1 fL (80-97); Mean Platelet Volume 6.6 fL (7.5-11.2); Platelet Count 253 10^3/uL (150-450); Red Blood Count 3.63 10^6/uL (4.06-5.63); Red Cell Distribution Width 12.9 % (12-17); White Blood Count 5.9 10^3/uL (3.6-10.2)
[2024-02-16 05:31] LABS: INR 1.06 (0.83-1.13)
[2024-02-16 06:03] LABS: Albumin 3.3 g/dL (3.2-5.2); Albumin/Globulin Ratio 1.3 (1-3); Calcium 8.7 mg/dL (8.6-10.3); Creatinine, Serum 0.85 mg/dL (0.67-1.17); Globulin 2.5 g/dL (2-4); Potassium 4.1 mmol/L (3.5-5.0); Total Bilirubin 0.3 mg/dL (0.2-1.0); Total Protein 5.8 g/dL (6.4-8.9); eGFR CKD-EPI 88.4 (>60)
[2024-02-16] MEDS ORDERED: Heparin 2 UNITS/ML IVPREMIX 3,000 UNIT/1,500 ML BAG IV ONE (13:55)
[2024-02-16] MEDS ORDERED: Iodixanol 320 (CONTRAST) 100 ML SDV ONE (13:55)
[2024-02-16] MEDS ORDERED: Lidocaine 1% VIAL 10 MG/ML 30 ML VIAL ONE (13:55)
[2024-02-16] MEDS ORDERED: fentaNYL 100 mcg/2 ml 50 MCG/ML VIAL ONE (14:01)
[2024-02-16] MEDS ORDERED: Midazolam 5 mg/5 ml VIAL 1 mg/ml 5 ml VIAL (5 mg) ONE (14:01)
[2024-02-19] MEDS ORDERED: HYDROmorphone 1 MG/1 ML SYRINGE IV PRN (14:27)
[2024-02-19] MEDS ORDERED: Ondansetron 4 mg VIAL 2 MG/ML 2 ml VIAL IV PRN (14:27)
[2024-02-19] MEDS ORDERED: fentaNYL 100 mcg/2 ml 50 MCG/ML VIAL IV PRN (14:27)
[2024-02-19] MEDS ORDERED: Naloxone 0.4 mg VIAL 0.4 mg/ml 1 ml VIAL IV PRN (14:27)
[2024-02-19] MEDS ORDERED: Propofol 10 MG/ML 20 ML BTL ONE (15:07)
[2024-02-19] MEDS ORDERED: HYDROmorphone 0.5 MG/0.5 ML SYRINGE ONE (15:07)
[2024-02-19] MEDS ORDERED: Ondansetron 4 mg VIAL 2 MG/ML 2 ml VIAL ONE (15:07)
[2024-02-19] MEDS ORDERED: Dexamethasone IV 4 MG/ML VIAL 1 ml VIAL ONE (15:07)
[2024-02-19] MEDS ORDERED: Bupivacaine 0.5% SDV PF 30ML VIAL ONE (15:07)
[2024-02-19] MEDS ORDERED: Lidocaine 2% PF 5 ML VIAL ONE (15:07)
[2024-02-19] MEDS ORDERED: fentaNYL 100 mcg/2 ml 50 MCG/ML VIAL ONE (17:52)
[2024-02-19] MEDS: Metoclopramide 5 MG/ML VIAL (10 mg) IV SLOW PU ONE (21:05)
[2024-02-20 10:16] LABS: ABS Lymphocytes 0.8 10^3/uL (1.0-4.8); ABS Monocytes 0.6 10^3/uL (0.0-1.1); Eosinophil % 0.4 %; Hematocrit 36.3 % (38-53); Hemoglobin 12.4 g/dL (13.2-16.3); Lymphocyte % 7.1 %; Mean Corpuscular Hemoglobin 31.2 pg (27-33); Mean Corpuscular Hgb Conc 34.1 g/dL (31-36); Mean Corpuscular Volume 91.6 fL (80-97); Mean Platelet Volume 6.8 fL (7.5-11.2); Platelet Count 373 10^3/uL (150-450); Red Blood Count 3.96 10^6/uL (4.06-5.63); White Blood Count 11.5 10^3/uL (3.6-10.2)
[2024-02-20 11:02] LABS: Albumin 3.9 g/dL (3.2-5.2); Albumin/Globulin Ratio 1.4 (1-3); Calcium 9.3 mg/dL (8.6-10.3); Creatinine, Serum 1.02 mg/dL (0.67-1.17); Globulin 2.7 g/dL (2-4); Potassium 4.4 mmol/L (3.5-5.0); Total Bilirubin 0.4 mg/dL (0.2-1.0); Total Protein 6.6 g/dL (6.4-8.9); eGFR CKD-EPI 74.8 (>60)
[2024-02-20 13:47] VITALS: BP 123/65
[2024-02-20] MEDS: Enoxaparin 40 MG/0.4 ML SYR SUBCUT SCH (17:05)
== END 2024-02-20 17:00 | disposition home or self-care (01) | DRG 854 ==
LOC: ED 18:55 → EDHOLD 23:23 → SUATTDRO 23:23 → MED 02-13 14:53
PROVIDERS: ADMIT Internal Medicine; ATTEND Internal Medicine